=== PATIENT | female | born 1975 | race Caucasian/White ===

== ENCOUNTER 2020-05-11 07:45 | Outpatient (CLI) | payer OTHER ==
[2020-05-11] MEDS ORDERED: OMNIPAQUE 350 MG/ML, 100ML BOTTLE ONE (15:58)
== END 2020-05-11 23:59 | disposition home or self-care (01) ==
LOC: CFH 07:45
PROVIDERS: ATTEND Student in an Organized Health Care Education/Training Program
DX: R22.1 Localized swelling, mass and lump, neck (principal)
CPT/HCPCS: 70491; Q9967

== ENCOUNTER → 2020-05-11 | Outpatient (CLI) | payer OTHER | END | disposition home or self-care (01) | LOC: RAD 08:46 | PROVIDERS: ATTEND Student in an Organized Health Care Education/Training Program | DX: R13.14 Dysphagia, pharyngoesophageal phase (principal) | CPT/HCPCS: 74230 ==